=== PATIENT | male | born 1930 | race Caucasian/White ===

== ENCOUNTER 2017-08-05 20:05 | Emergency (ER) | payer MEDICARE ==
[2017-08-05 20:17] VITALS: BP 138/77
[2017-08-05] MEDS ORDERED: DOXYcycline CAP(*) 100 MG PO ONE (20:30)
--- NOTE | 2017-08-05 20:49 | UC ---
General HPI - HPI Summary HPI Summary: TICK FOUND ON RIGHT RIBS. NO FEVER. NO JOINT PAIN. SMALL CIRCULAR RED RASH WHERE TICK HAD BEEN EMBEDDED. TICK REMOVED PRIOR TO ARRIVAL BY . 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 pacer. hernia. eye surgery - Family History Known Family History: Negative: Blood Disorder - Social History Occupation: Retired Lives: With Family Alcohol Use: None Substance Use Type: None Smoking Status (MU): Never Smoked Tobacco - Immunization History Most Recent Tetanus Shot: unknown Review of Systems Constitutional: Negative Skin: Rash Eyes: Negative ENT: Negative Respiratory: Negative Cardiovascular: Negative Gastrointestinal: Negative Genitourinary: Negative Motor: Negative Neurovascular: Negative Musculoskeletal: Negative Neurological: Negative Psychological: Negative Is Patient Immunocompromised?: No All Other Systems Reviewed And Are Negative: Yes Physical Exam Triage Information Reviewed: Yes Appearance: Well-Appearing, No Pain Distress, Well-Nourished Vital Signs: Initial Vital Signs Temp 98.3 F 08/05/17 20:16 Pulse 60 08/05/17 20:16 Resp 14 08/05/17 20:16 BP 138/77 08/05/17 20:16 Pulse Ox 100 08/05/17 20:16 Vital Signs Reviewed: Yes Eye Exam: Normal ENT Exam: Normal ENT: Positive: Normal ENT inspection, TMs normal Dental Exam: Normal Neck exam: Normal Neck: Positive: Supple, Nontender, No Lymphadenopathy Respiratory Exam: Normal Respiratory: Positive: Chest non-tender, Lungs clear, Normal breath sounds, No respiratory distress, No accessory muscle use Cardiovascular Exam: Normal Cardiovascular: Positive: RRR, No Murmur, Pulses Normal, Brisk Capillary Refill Abdominal Exam: Normal Musculoskeletal Exam: Normal Musculoskeletal: Positive: Strength Intact, ROM Intact Neurological Exam: Normal Psychological Exam: Normal Skin: Positive: rashes - 0.5CM X0.5CM ERRYTHEMATOUS CIRCULAR LESION WHERE TICK HAD BEEN EMBEDDED Course/Dx - Differential Dx - Multi-Symptom Differential Diagnoses: Metabolic Abnormality, Sepsis Provider Diagnoses: TICK BITE PROPHYLAXIS Discharge - Discharge Plan Condition: Stable Disposition: HOME Patient Education Materials: Lyme Disease (ED), Tick Bite (ED) Referrals: [facility] [place] PHYSICIAN REFERRAL [Outside] Non Staff,Doctor [Primary Care Provider] - Images Front/Back of Body, Lg ([place]): 1 - 0.5CM X0.5CM ERRYTHEMATOUS CIRCULAR LESION WHERE TICK HAD BEEN EMBEDDED
== END 2017-08-05 20:44 | disposition home or self-care (01) ==
LOC: UCCORT 20:05
DX: S20.369A Insect bite (nonvenomous) of unspecified front wall of thorax, initial encounter (principal); W57.XXXA Bitten or stung by nonvenomous insect and other nonvenomous arthropods, initial encounter; Z88.0 Allergy status to penicillin
CPT/HCPCS: 99212; A9270-GY; G0463

== ENCOUNTER 2018-02-24 14:00 | Emergency (ER) | payer MEDICARE ==
[2018-02-24 14:31] VITALS: BP 118/51
--- NOTE | 2018-02-24 14:32 | ED ---
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 pacer. hernia. eye surgery Infectious Disease History: Denies: Traveled Outside the [place] in Last 30 Days - Family History Known Family History: Positive: Hypertension Negative: Blood Disorder - Social History Alcohol Use: None Substance Use Type: Reports: None Smoking Status (MU): Never Smoked Tobacco Review of Systems Constitutional: Negative Eyes: Negative ENT: Negative Cardiovascular: Negative Respiratory: Negative Gastrointestinal: Negative Genitourinary: Negative Musculoskeletal: Negative Positive: Other - skin bump in left forearm Neurological: Negative Psychological: Normal All Other Systems Reviewed And Are Negative: Yes Physical Exam Triage Information Reviewed: Yes Vital Signs Reviewed: Yes Appearance: Positive: Well-Appearing Skin: Positive: Warm, Other - small 3x3cm mobile soft tissue contusion with a bluish tinge on left extensor surface of the forearm Eyes: Positive: Normal ENT: Positive: Normal ENT inspection Neck: Positive: Supple Respiratory/Lung Sounds: Positive: Clear to Auscultation Cardiovascular: Positive: Normal, RRR Abdomen Description: Positive: Nontender Musculoskeletal: Positive: Normal Neurological: Positive: Normal Psychiatric: Positive: Normal AVPU Assessment: Alert Course/Dx - Diagnoses Provider Diagnoses: Contusion of soft tissue Discharge - Sign-Out/Discharge Documenting (check all that apply): Discharge/Admit/Transfer - Discharge Plan Condition: Stable Disposition: HOME Patient Education Materials: Contusion in Adults (ED) Referrals: Jian Koenig MD [Primary Care Provider] - Additional Instructions: monitor for change in size forearm bump and follow up with dermatology if it increases in size - Billing Disposition and Condition Condition: STABLE Disposition: HOME
== END 2018-02-24 14:40 | disposition home or self-care (01) ==
LOC: UCCORT 14:00
DX: S50.12XA Contusion of left forearm, initial encounter (principal); X58.XXXA Exposure to other specified factors, initial encounter; Y93.9 Activity, unspecified; Y92.9 Unspecified place or not applicable; Z95.0 Presence of cardiac pacemaker; Z79.01 Long term (current) use of anticoagulants; Z88.0 Allergy status to penicillin; I25.10 Atherosclerotic heart disease of native coronary artery without angina pectoris
CPT/HCPCS: 99212; G0463